=== PATIENT | female | born 1930 | race Caucasian/White ===

== ENCOUNTER 2016-11-01 05:32 | Inpatient (IN) | payer MEDICARE, MEDICAID ==
[~2016-11-01 05:32] MED LIST: BRIMONIDINE 0.15% LEFTEYE SCH
[2016-11-01] MEDS ORDERED: IPRATROPIUM/ALBUTEROL 0.5/3 MG 3 ML AMPUL.NEB INHALATION ONE ×2 (05:49→06:49)
[2016-11-01 06:21] LABS: BASOPHILS 0.2 % (0.0-2.0); HEMATOCRIT 42.1 % (36.0-48.0); HEMOGLOBIN 14.5 g/dL (12.0-16.0); LYMPHOCYTES 6.1 % (20.0-40.0); LYMPHOCYTES# 0.9 X 10^3uL (0.8-3.8); MEAN CELL VOLUME 93.4 fL (80.0-100.0); MEAN CORPUS. HGB CONCENTRATION 34.5 g/dL (32.0-36.0); MEAN CORPUSCULAR HEMOGLOBIN 32.2 pg (29.0-35.0); MEAN PLATELET VOLUME 8.1 fL (7.4-10.4); MONOCYTES# 0.6 X 10^3uL (0.2-1.0); PLATELET COUNT 259 X 10^3uL (130-440); RED BLOOD COUNT 4.51 X 10^6uL (4.20-6.10); RED CELL DISTRIBUTION WIDTH 12.5 % (11.5-14.5); WHITE BLOOD COUNT 15.5 X 10^3uL (3.9-10.7)
[2016-11-01 06:36] LABS: BLOOD UREA NITROGEN 19 mg/dL (7-17); CALCIUM 9.5 mg/dL (8.4-10.2); CHLORIDE 101 mmol/L (98-107); GLUCOSE 107 mg/dL (70-100); POTASSIUM 3.6 mmol/L (3.5-5.1); SODIUM 139 mmol/L (137-145)
[2016-11-01 06:42] LABS: NEUTROPHILS 89.7 % (54.0-75.0)
[2016-11-01 06:48] LABS: TROPONIN I < 0.012 ng/mL (0.00-0.034)
[2016-11-01] MEDS ORDERED: FUROSEMIDE 20 MG/2 ML VIAL ONE (06:49)
[2016-11-01] MEDS ORDERED: HOME MEDICATION LIST NEEDED 1 EA EACH MISC ONE (07:06)
[2016-11-01] MEDS ORDERED: cefTRIAXone SODIUM 1,000 MG/10 ML VIAL ONE (07:22)
[2016-11-01] MEDS ORDERED: AZITHROMYCIN 250 MG TABLET PO ONE (07:22)
[2016-11-01] MEDS ORDERED: NORMAL SALINE 250 ML IV ONE (07:23)
[2016-11-01] MEDS ORDERED: NORMAL SALINE 100 ML IV ONE (07:23)
--- NOTE | 2016-11-01 07:35 | ER PHYSICIAN DOCUMENTATION ---
Physician Documentation [facility] Name:Deborah Villegas Age:86 yrs Sex:Female :1930 Arrival Date:11/01/2016 Time:05:32 BedTrauma-B Private MD:Melina Junior ED, Chris Disposition: 11/01 06:51 Critical Care: not applicable. cd 07:35 Chart complete. cd Disposition: 11/01/16 06:52 Admit ordered for Melina Junior. Preliminary diagnosis are Pneumonia Bacterial, Hypoxia, Do Not Resuscitate Status. - Bed requested for Medical/Surgical. - Condition is Fair. - Problem is new. - Symptoms have improved. 23 HR OBS No HPI: 05:40 This 86 yrs old Female presents to ER via Private Vehicle with complaints of cd Shortness of breath and hypoxia. 05:40 The patient has shortness of breath at rest, that woke him/her from sleep, that cd occurred at a fpc or assisted living facility, and the patient has a history of lung disease, Hypoxia, Patient reports that she was recently exposed to a filter cleaner at the [facility] 2 and 3 days ago that had a cold and deep cough.. Onset: The symptom(s)/episode began/occurred acutely, just prior to arrival. Duration: The symptoms are continuous, and are unchanged since they started. The patient's shortness of breath is aggravated by nothing, is alleviated by nothing. Associated signs and symptoms: Pertinent negatives: chest pain, diaphoresis, dizziness, fever, hemoptysis, nausea, vomiting. Severity of symptoms: At their worst the symptoms were moderate in the emergency department the symptoms are unchanged. Risk Factors Risk factors for coronary artery disease include: This patient does not have any risk factors for coronary artery disease. The patient has not experienced similar symptoms in the past. Patient's daughter, the power of district attorney, relates that the patient's mother of sudden CHF.. Historical: - Allergies: Codeine; - Home Meds: 1. Aspirin Oral 2. brimonidine 3. dorzolammide 4. Lisinopril Oral 5. Verapamil Oral 6. Lyrica Oral - PMHx: back pain, awaiting spinal injection; - Ebola Screening: : Patient negative for fever greater than or equal to 101.5 degrees Fahrenheit, and additional compatible Ebola Virus Disease symptoms. Patient denies exposure to infectious person. Patient denies travel to an Ebola-affected area in the 21 days before illness onset. No symptoms or risks identified at this time. . - Immunization history: Pneumococcal vaccine is up to date, Flu Vaccine < 1 year. - Social history: Smoking status: Patient states former smoker of tobacco. Patient/guardian denies using alcohol, street drugs, IV drugs, marijuana. ROS: 06:29 ENT: Negative for injury, pain, epistaxis and discharge. cd Neck: Negative for injury, pain, stiffness and swelling. Cardiovascular: Negative for chest pain, palpitations, edema and pleuritic pain. Abdomen/GI: Negative for abdominal pain, nausea, vomiting, diarrhea, constipation, distension, melena, hematochezia and hematemesis. Back: Negative for injury, pain or muscle spasms. : Negative for injury, bleeding, discharge, dysuria, frequency, urgency and swelling. MS/Extremity: Negative for injury, deformity, edema, calf tenderness, pain or coldness. Skin: Negative for injury, rash, itching and discoloration. 06:29 Neuro: Negative for headache, weakness, numbness, tingling, and seizure. cd 06:29 Constitutional: Negative for chills, fever, poor PO intake. 06:29 Respiratory: Positive for orthopnea, shortness of breath, Negative for cough, hemoptysis, pleurisy, wheezing. 06:29 All other systems are negative. Exam: Head/Face: Normocephalic, atraumatic. ENT: Nares patent. No nasal discharge, no septal abnormalities noted. Tympanic membranes are normal and external auditory canals are clear. Oropharynx with no redness, swelling, or masses, exudates, or evidence of obstruction, uvula midline. Mucous membranes moist. Neck: Trachea midline, no thyromegaly or masses palpated, and no cervical lymphadenopathy. Supple, full range of motion without nuchal rigidity, or vertebral point tenderness. No Meningismus. Chest/axilla: Normal chest wall appearance and motion. Nontender with no deformity. No lesions are appreciated. Abdomen/GI: Soft, non-tender, with normal bowel sounds. No distension or tympany. No guarding or rebound. No evidence of tenderness throughout. Back: No spinal tenderness. No costovertebral tenderness. Full range of motion. Skin: Warm, dry with normal turgor. Normal color with no rashes, no lesions, and no evidence of cellulitis. MS/ Extremity: Pulses equal, no cyanosis. Neurovascular intact. Full, normal range of motion. 06:29 Neuro: Awake and alert, GCS 15, oriented to person, place, time, and situation. cd Cranial nerves II-XII grossly intact. Motor strength 5/5 in all extremities. Sensory grossly intact. Cerebellar exam normal. Normal gait. 06:29 Constitutional: The patient appears alert, awake, comfortable, non-diaphoretic, non-toxic, well developed, well nourished. 06:29 Cardiovascular: Rate: normal, Rhythm: regular, Pulses: no pulse deficits are appreciated, Heart sounds: normal, Edema: is not appreciated. 06:29 Respiratory: the patient does not display signs of respiratory distress, Respirations: normal, no acute changes, labored breathing, is not present, accessory muscle usage, is absent, prolonged exhalation, is not present, pursed lip breathing, is not present, Breath sounds: rales, that are moderate, are scattered, are located in both bases, rhonchi, are not appreciated, wheezing, is not appreciated, stridor, is not appreciated. Vital Signs: 05:39 BP 127 / 62 (auto/); st 05:43 Pulse 83; Pulse Ox 87% ; st 05:45 BP 117 / 58 (auto/); sc1 05:49 BP 117 / 58; Pulse 87; Resp 20; Temp 99.4(TE); Pulse Ox 87% on 8% Non-rebreather mask; sc1 06:03 Pulse Ox 90% ; sc1 06:03 Pulse 85; Resp 18; sc1 06:15 BP 108 / 50 (auto/); st 06:18 Pulse 87; Pulse Ox 87% ; st 06:30 BP 88 / 46 (auto/); st 06:33 Pulse 84; Pulse Ox 88% ; st 06:45 BP 89 / 43 (auto/); st 06:53 Resp 22; Pulse Ox 88% ; st 07:00 BP 88 / 42 (auto/); st 07:03 Pulse 94; Pulse Ox 88% ; st 07:17 BP 85 / 41 (auto/); st 07:18 Pulse 90; Pulse Ox 91% ; st 07:28 Pulse Ox 94% ; st 07:28 BP 88 / 40 (auto/); Pulse 90; st [place] Coma Score: 06:29 Eye Response: spontaneous(4). Verbal Response: oriented(5). Motor Response: obeys cd commands(6). Total: 15. MDM: 05:36 Patient medically screened. cd 05:40 Data interpreted: Pulse oximetry: on 3L(s) per nasal cannula, is 72 %. Interpretation: cd hypoxia. Plan: O2 by Mask applied. 05:45 Differential diagnosis: CHF exacerbation, Chronic Obstructive Pulmonary Disease cd Myocardial Infarction pneumonia, pulmonary edema, Pulmonary Embolism reactive airway disease, Sepsis Unstable Angina. 06:33 Antibiotic administration: Rocephin and Zithromax given. Data reviewed: vital signs, cd nurses notes, old medical records, EKG, radiologic studies, plain films, and as a result, I will admit patient, initiate a consult, from a Internal Medicine, Dr. Melina Junior. 06:45 ECG:. cd 06:50 Physician consultation: Melina Junior MD was called at 06:45, was contacted at cd 06:50, regarding admission, to the floor, consult, patient's condition, need to evaluate the patient as soon as possible, and will see patient in inpatient room, shortly, later today. Admission orders: after a detailed discussion of the patient's condition and case, the admit orders are written by me. 06:51 Counseling: I had a detailed discussion with the patient and/or guardian regarding: the cd historical points, exam findings, and any diagnostic results supporting the discharge/admit diagnosis, lab results, radiology results, the need for further work-up and treatment in the hospital. Response to treatment: the patient's symptoms have mildly improved after treatment, and as a result, I will admit patient. 11/01 06:33 Order name: LACTATE; Complete Time: 06:49 EDMS 06 06:49 Interpretation: Abnormal: LACTATE 2.6; Elevated. 11/01 06:41 Order name: BASIC METABOLIC PANEL; Complete Time: 06:49 EDMS 06 06:49 Interpretation: Normal. 11/01 06:42 Order name: CBC AUTO DIF, MDIF/RMOR IF IND; Complete Time: 06:49 EDMS 11/01 06:49 Interpretation: Normal Except: WHITE BLOOD COUNT 15.5; NEUTROPHILS 89.7; Elevated WBC cd with Left shift. 11/01 06:48 Order name: DDIMER; Complete Time: 06:50 EDMS 11/01 06:50 Interpretation: Abnormal: DDIMER 318; Mildly Elevated, but less than 10x the patient's cd age. 06 06:49 Order name: BNP,NT-PRO; Complete Time: 06:50 EDMS 11/01 06:50 Interpretation: Abnormal: BNP,NT-PRO 1290; elevated. 11/01 06:49 Order name: TROPONIN I; Complete Time: 06:50 EDMS 11/01 06:50 Interpretation: Normal. 11/01 09:14 Order name: RAPID STREP SCRN CUL IF NEG EDMS 11/01 14:18 Order name: SPUTUM CULTURE AND GRAM STAIN EDHI 11/02 06:16 Order name: BLOOD CULTURE EDMS 11/02 06:16 Order name: BLOOD CULTURE EDMS 11/02 06:27 Order name: BASIC METABOLIC PANEL EDHI 11/02 06:31 Order name: CBC AUTO DIF, MDIF/RMOR IF IND EDMS 11/02 09:28 Order name: THROAT FOR BETA STREP EDMS 11/02 09:59 Order name: LACTATE EDMS 11/03 07:24 Order name: BASIC METABOLIC PANEL EDMS 11/01 12:13 Order name: CHEST; SINGLE [place]IEW [address] EDHI 11/02 10:37 Order name: CXR 2V [id number] EDMS 11/01 05:38 Order name: I & O; Complete Time: 06:24 cd 11/01 05:38 Order name: Oxygen; Complete Time: 06:24 cd 11/01 05:38 Order name: Place Patient On Monitor; Complete Time: 06:24 cd 11/01 05:38 Order name: Pulse Ox Continuous; Complete Time: 06:24 cd 11/01 05:38 Order name: 12-lead EKG; Complete Time: 06:42 cd EC:20 Rate is 82 beats/min. Rhythm is regular. QRS [place] is Normal. [place] interval is normal. QRS cd interval is normal. QT interval is normal. No Q waves. T waves are Normal. No ST changes noted. Clinical impression: Normal ECG and No evidence of ischemia. Interpreted by me. Dispensed Medications: 05:40 Drug: DuoNeb (Albuterol 2.5 mg, Atrovent 0.5 mg); 3 ml; Route: Nebulizer; [facility] 06:41 Drug: Lasix 10 mg; Route: IVP; Site: left antecubital; mi1 06:41 Drug: DuoNeb (Albuterol 2.5 mg, Atrovent 0.5 mg); 3 ml; Route: Nebulizer; mi1 07:21 Drug: Rocephin 1 grams; Route: IVPB; Site: left antecubital; st 07:34 Follow up: IV Status: Infusion continued upon admission st 07:21 Drug: Zithromax 500 mg; Route: PO; 07:22 Drug: NS 0.9% 250 ml; Route: IV; Rate: bolus; Site: left antecubital; st 07:33 Follow up: IV Status: Infusion continued upon admission st Signatures: Samantha Barnard RN RN Huma Alexandra RN RN [facility] Jorge Jeffers MD MD cd
--- NOTE | 2016-11-01 07:35 | ER NURSING DOCUMENTATION ---
Nurse's Notes [facility] Name:Deborah Villegas Age:86 yrs Sex:Female :1930 Arrival Date:11/01/2016 Time:05:32 BedTrauma-B Private MD:Melina Junior Diagnosis:Pneumonia Bacterial;Hypoxia;Do Not Resuscitate Status Presentation: 11/01 05:45 Presenting complaint: PP staff state that pt. has had progressively worsening lung sc1 sounds and difficulty breathing tonight and also states she has been hypotensive. Transition of care: PP. Notified ED Physician of patient's arrival and CC Dr. Jeffers notified. 05:45 Acuity: CESAR 3 sc1 05:45 Method Of Arrival: Private Vehicle ok1 Triage Assessment: 05:49 General: Appears in no apparent distress, well developed, well nourished, well groomed, sc1 Behavior is cooperative, pleasant. Pain: Denies pain. Respiratory: Breath sounds with crackles bilaterally. Historical: - Allergies: Codeine; - Home Meds: 1. Aspirin Oral 2. brimonidine 3. dorzolammide 4. Lisinopril Oral 5. Verapamil Oral 6. Lyrica Oral - PMHx: back pain, awaiting spinal injection; - Ebola Screening: : Patient negative for fever greater than or equal to 101.5 degrees Fahrenheit, and additional compatible Ebola Virus Disease symptoms. Patient denies exposure to infectious person. Patient denies travel to an Ebola-affected area in the 21 days before illness onset. No symptoms or risks identified at this time. . - Immunization history: Pneumococcal vaccine is up to date, Flu Vaccine < 1 year. - Social history: Smoking status: Patient states former smoker of tobacco. Patient/guardian denies using alcohol, street drugs, IV drugs, marijuana. Screenin:53 Infectious Disease Risk None. Abuse screen: Denies threats or abuse. Nutritional sc1 screening: No deficits noted. Assessment: 07:22 General: pt states she is feeling better.. st Vital Signs: 05:39 BP 127 / 62 (auto/); st 05:43 Pulse 83; Pulse Ox 87% ; st 05:45 BP 117 / 58 (auto/); sc1 05:49 BP 117 / 58; Pulse 87; Resp 20; Temp 99.4(TE); Pulse Ox 87% on 8% Non-rebreather mask; sc1 06:03 Pulse Ox 90% ; sc1 06:03 Pulse 85; Resp 18; sc1 06:15 BP 108 / 50 (auto/); st 06:18 Pulse 87; Pulse Ox 87% ; st 06:30 BP 88 / 46 (auto/); st 06:33 Pulse 84; Pulse Ox 88% ; st 06:45 BP 89 / 43 (auto/); st 06:53 Resp 22; Pulse Ox 88% ; st 07:00 BP 88 / 42 (auto/); st 07:03 Pulse 94; Pulse Ox 88% ; st 07:17 BP 85 / 41 (auto/); st 07:18 Pulse 90; Pulse Ox 91% ; st 07:28 Pulse Ox 94% ; st 07:28 BP 88 / 40 (auto/); Pulse 90; st [place] Coma Score: 06:29 Eye Response: spontaneous(4). Verbal Response: oriented(5). Motor Response: obeys cd commands(6). Total: 15. ED Course: 05:34 Patient arrived in ED. em2 05:34 Melina Junior MD is Private Physician. em2 05:36 Jorge Jeffers MD is Attending Physician. cd 05:45 Huma Peacock RN is Primary Nurse. sc1 05:47 Triage completed. sc1 05:52 Port Xray Completed. dnn 05:53 Notified ED Physician of patient's arrival and chief complaint. Dr. Jeffers notified. sc1 Allergy Band Placed Arm band placed on Bed in low position Call Light in Reach Gowned HOB Elevated Side rails up x2. Labs ordered per protocol. Drawn by ED staff. 06:00 Inserted saline lock: 20 gauge in left antecubital area and blood collected. 1st set of em1 blood cultures and lactate. 06:07 Inserted RAC accessed with 22G butterfly for 2nd set of blood cultures. em1 06:19 EKG done. (by ED staff). em1 06:52 Melina Junior MD is Admitting Physician. cd Administered Medications: 05:40 Drug: DuoNeb (Albuterol 2.5 mg, Atrovent 0.5 mg); 3 ml; Route: Nebulizer; sc1 06:41 Drug: Lasix 10 mg; Route: IVP; Site: left antecubital; [facility] 06:41 Drug: DuoNeb (Albuterol 2.5 mg, Atrovent 0.5 mg); 3 ml; Route: Nebulizer; ok1 07:21 Drug: Rocephin 1 grams; Route: IVPB; Site: left antecubital; st 07:34 Follow up: IV Status: Infusion continued upon admission st 07:21 Drug: Zithromax 500 mg; Route: PO; st 07:22 Drug: NS 0.9% 250 ml; Route: IV; Rate: bolus; Site: left antecubital; st 07:33 Follow up: IV Status: Infusion continued upon admission st Outcome: 06:52 Decision to Admit by Provider. 07:33 Admitted to Med/surg accompanied by nurse, via wheelchair, with oxygen. st 07:33 Condition: stable 07:33 Report given to Sumi COWAN 07:33 Instructed on need to admit 07:34 Patient [address] the ED. st Signatures: Samantha Barnard RN RN st Campbell, Sandy, RN RN sc1 Jorge Jeffers MD MD cd [place], David dnn Meinking-tech, Katrina-tech em1 Meinking-reg, Katrina-reg em2
[2016-11-01] MEDS ORDERED: WATER IRRIG 1,000 ML BOTTLE ONE (08:06)
[2016-11-01] MEDS: IPRATROPIUM/ALBUTEROL 0.5/3 MG 3 ML AMPUL.NEB INHALATION SCH ×4 (08:38→19:56)
[2016-11-01] MEDS ORDERED: BENZOCAINE/MENTHOL 1 EACH LOZENGE PO ONE (08:54)
--- NOTE | 2016-11-01 08:59 | RADIOLOGY REPORT ---
A limited single portable view of the chest is compared with prior film dated . The heart and vessels are stable and unremarkable. There has been development of small patchy bibasilar infiltrates. The mid and upper lung haynes are clear. No fluid or pneumothorax is seen. IMPRESSION: Small patchy bibasilar infiltrates. MTDD
[2016-11-01] MEDS ORDERED: PIPERACILLIN /TAZO 2.25 GM/10 ML VIAL IV SCH (09:00)
[2016-11-01] MEDS ORDERED: NORMAL SALINE MINI-BAG+ 100 ML IV ONE (10:19)
[2016-11-01] MEDS: ENOXAPARIN SODIUM 30 MG/0.3 ML SYR SUBCUT SCH (10:20)
[2016-11-01] MEDS: NORMAL SALINE 1,000 ML IV SCH (10:20)
[2016-11-01] MEDS: BENZOCAINE/MENTHOL 1 EACH LOZENGE PO PRN ×2 (10:21→14:36)
[2016-11-01] MEDS: TAZO IV SCH ×3 (11:33→22:22)
[2016-11-01] MEDS: PIPERACILLIN IV SCH ×3 (11:33→22:22)
[2016-11-01] MEDS: NORMAL SALINE MINI IV SCH ×3 (11:33→22:22)
--- NOTE | 2016-11-01 14:10 | HISTORY & PHYSICAL ---
DATE OF ADMISSION: 11/01/16 ADMITTING DIAGNOSIS: Bilateral lower lobe pneumonia, unknown organism. HISTORY OF PRESENT ILLNESS: The patient is an 86-year-old female, resident of the [facility], who was in her usual state of health until last evening. She apparently developed a cough which was nonproductive, and some malaise and during the night her oxygen steadily decreased so that she had oxygen placed. Towards the morning she was requiring multiple liters of oxygen to maintain a saturation even of 84%, and she was noted to be hypotensive with a blood pressure systolic of 99. At this point I was paged, and the patient was transferred to the emergency room. The patient was assessed in the emergency room. She was complaining of a sore throat, cough, weakness and malaise and lack of appetite. She has no chest pain or palpitations. Emergency room assessment found her to have bilateral small lower lobe infiltrates and marked hypoxemia on arrival which was corrected with a nonrebreather mask, and then improved with DuoNebs. The patient is being admitted for facility acquired pneumonia. ALLERGIES: To clarithromycin and codeine. PAST MEDICAL HISTORY 1. Mild cognitive impairment. 2. Hyponatremia. 3. 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 4. Hypertension. 5. History of paroxysmal supraventricular tachycardia with ablation in 1998. 6. History of pelvic fracture on the right side. 7. Nocturnal hypoxia. 8. Monoclonal gammopathy of unknown significance. 9. Anxiety. 10. Anemia of chronic disease which has been mild. 11. History of partial small bowel obstruction in 2012 resolved without surgery. 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 13. 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 PAST SURGICAL HISTORY 1. Remote ankle surgery. 2. Appendectomy 1979. 3. Abdominal hysterectomy with unilateral oophorectomy for benign reasons in 1973. 4. Left inguinal hernia repair in 2011. 5. Tonsillectomy. 6. Lumbar spinal decompression with diskectomy. MEDICATIONS IN THE FACILITY Acetaminophen 325 mg 2 every 4 hours as needed. Artificial Tears at bedtime as needed for dry eyes. Lorazepam 0.5 mg twice daily as needed for anxiety. Brimonidine drops 0.15% 2 drops to the left eye daily. Calcium 600 mg with vitamin D 200 units twice daily. Multivitamin 1 daily. Dorzolamide drops 2% 1 drop to the left eye twice daily. Dulcolax suppository 1 per rectum daily p.r.n., 10 mg constipation. Furosemide 20 mg half a tablet q.a.m. Simethicone chewable 80 mg 1 every 8 hours as needed. Ibuprofen 200 mg 2 every 6 hours as needed for pain. Losartan 100 mg daily. Lyrica 75 mg twice daily. Maalox 30 mL every 2 hours as needed. Metamucil 1 teaspoon twice daily. Potassium chloride 8 mEq 1 daily. Promethazine 25 mg 1 every 8 hours as needed for nausea. Salt tablets 3 g 1 daily. Sertraline 25 mg daily. Tramadol 50 mg every 6 hours as needed. Ventolin HFA 1 or 2 puffs up to 4 times daily as needed for wheezing with spacer. Vitamin D 400 IU daily. SOCIAL HISTORY: She has a history of heavy alcohol abuse but has not been drinking for several years now. She is . She has 3 daughters one of whom is local. She is a former smoker who quit 20-30 years ago but had a history of heavy use. FAMILY HISTORY: Father drown at unknown age. Mother at 86 with heart failure and had macular degeneration. A brother from a fall. REVIEW OF SYSTEMS: Denies headache. She has general malaise, however, and lightheadedness. Complains of a sore throat. She complains of cough and some shortness of breath and wheezing. She has no chest pain. She has some chest tightness. She has had no diarrhea or constipation or abdominal pain. No melena or hematochezia. She has had no dysuria or hematuria. She has some chronic right leg pain from sciatica and ongoing lumbar spine issues. PHYSICAL EXAMINATION VITAL SIGNS: Last blood pressure from the emergency room 88/40, pulse is recorded at 90, oxygen saturation at 91% on nonrebreather. GENERAL: The patient is alert and answers appropriately. She is very thin but this is not new. HEENT: Extraocular movements are intact but she has had chronic difficulty with upward gaze. Pupils are equal, round and reactive. Oropharynx is moist, however , there is marked erythema of the posterior soft palate with a patch of white exudate adjacent to the uvula and some edema. NECK: No jugular venous distention. No bruits. No adenopathy. No thyromegaly. LUNGS: Diffuse rhonchi anteriorly and posteriorly with some dullness to percussion at the bases posteriorly. No tachypnea is noted. ABDOMEN: Soft, flat, nontender. No organomegaly, no masses noted. Surgical incision scars that are well healed are noted. NEUROLOGIC: She is well oriented but has no short term memory deficits at times. Cranial nerves are grossly intact except for her upward gaze palsy. Motor strength is 5/5. Deep tendon reflexes are markedly brisk throughout. Toes are downgoing bilaterally. Gait was not tested. DATA: Chemistry is notable for a mildly elevated BUN at 19. Sodium is normal at 139. Glucose is 107 nonfasting. Lactic acid was high at 2.6. BNP is 1290. CBC: White count is 15,500, hemoglobin 14.5, hematocrit 42.1, platelet count 259,000. There is a left shift of 90% neutrophils. Lymphocytes are mildly decreased at 6%. D-dimer was mildly elevated at 318 but this is most likely consistent with pneumonia. ASSESSMENT AND PLAN 1. Bilateral lower lobe pneumonia. The patient does not have a tendency to aspirate nor history of aspiration. The pneumonia is facility acquired and we have had 2 other patients in the facility with pneumonia recently one of which has staph in the sputum culture along with E coli. The staph was not methicillin resistant. I elected therefore to cover the patient with Zosyn. Hopefully we can induce a sputum with respiratory treatment as the patient is not bringing up sputum at this time. She is requiring a lot of oxygen use and has an underlying history of some COPD per previous x-rays. Will continue out efforts with nebulizers and with respiratory therapy. Blood cultures have been obtained. The patient is current with her pneumococcal vaccination with Pneumovax in 2012 and Prevnar having been given in the retirement in 2016. She also had her flu shot in February of 2016. 2. Hypertension. The patient has been hypotensive and medications are being held at this time and we will monitor until we feel that she can take them safely. She is being monitored on telemetry with a history of paroxysmal supraventricular tachycardia. 3. Hyponatremia. The patient has done very well with 3 g of sodium replacement daily and has had a complete workup for the problem. 4. Mild cognitive impairment. The patient is actually reasonably oriented at this time but does have a history of developing delirium when hospitalized and will need to be monitored closely for that. 5. Chronic sciatica and spinal pain in the lumbar region. Continue tramadol as needed but be cautious because of her history of delirium in the hospital setting. 6. The patient has do not resuscitate status and this will be honored as it is longstanding. 7. DVT prophylaxis. Will be started with Lovenox as she is high risk given her pneumonia. MTDD
[2016-11-01] MEDS ORDERED: MAG-AL PLUS XS SUSP 30 ML UDC PO PRN (14:42)
[2016-11-01] MEDS ORDERED: BISACODYL 10 MG SUPP.RECT RECTAL PRN (14:42)
[2016-11-01] MEDS ORDERED: LOPERAMIDE HCL 2 MG CAPSULE PO PRN (14:42)
[2016-11-01] MEDS ORDERED: SENNOSIDES 8.6 MG TABLET PO PRN (14:42)
[2016-11-01] MEDS ORDERED: traMADol HCL 50 MG TABLET PO PRN (14:42)
[2016-11-01] MEDS ORDERED: POLYVINYL ALCOHOL 1.4% OPHTH 75 DROP/15 ML BTL EACHEYE PRN (14:42)
[2016-11-01] MEDS ORDERED: IBUPROFEN 200 MG TABLET PO PRN (14:42)
[2016-11-01] MEDS ORDERED: SIMETHICONE CHEW 80 MG TABLET PO PRN (14:42)
[2016-11-01] MEDS ORDERED: MAGNESIUM HYDROXIDE 30 ML UDC PO PRN (14:42)
[2016-11-01] MEDS ORDERED: BRIMONIDINE TARTRATE LEFTEYE SCH (14:45)
[2016-11-01] MEDS: ACETAMINOPHEN 325 MG TABLET PO SCH ×3 (15:39→22:21)
[2016-11-01] MEDS: LORazepam 1 MG TABLET PO SCH (20:16)
[2016-11-01] MEDS: PSYLLIUM SEED 1 PKT PACKET PO SCH (20:16)
[2016-11-01] MEDS: PREGABALIN 75 MG CAPSULE PO SCH (20:18)
[2016-11-01] MEDS: SERTRALINE HCL 50 MG TABLET PO SCH (20:18)
[2016-11-01] MEDS: DORZOLAMIDE 2% LEFTEYE SCH (20:18)
[2016-11-02] MEDS: IPRATROPIUM/ALBUTEROL 0.5/3 MG 3 ML AMPUL.NEB INHALATION SCH ×6 (02:47→20:58)
[2016-11-02] MEDS: ACETAMINOPHEN 325 MG TABLET PO SCH ×6 (02:48→23:25)
[2016-11-02] MEDS: PIPERACILLIN IV SCH ×4 (03:17→21:30)
[2016-11-02] MEDS: TAZO IV SCH ×4 (03:17→21:30)
[2016-11-02] MEDS: NORMAL SALINE MINI IV SCH ×4 (03:17→21:30)
[2016-11-02] MEDS: BENZOCAINE/MENTHOL 1 EACH LOZENGE PO PRN (03:55)
[2016-11-02 06:19] LABS: BLOOD UREA NITROGEN 28 mg/dL (7-17); CALCIUM 7.9 mg/dL (8.4-10.2); CHLORIDE 105 mmol/L (98-107); GLUCOSE 86 mg/dL (70-100); POTASSIUM 3.7 mmol/L (3.5-5.1); SODIUM 137 mmol/L (137-145)
[2016-11-02 06:27] LABS: BASOPHILS 0.1 % (0.0-2.0); EOSINOPHILS 0.2 % (0.0-6.0); HEMOGLOBIN 11.1 g/dL (12.0-16.0); LYMPHOCYTES 7.4 % (20.0-40.0); LYMPHOCYTES# 1.1 X 10^3uL (0.8-3.8); MEAN CELL VOLUME 94.3 fL (80.0-100.0); MEAN CORPUS. HGB CONCENTRATION 33.5 g/dL (32.0-36.0); MEAN CORPUSCULAR HEMOGLOBIN 31.6 pg (29.0-35.0); MONOCYTES 3.8 % (2.0-10.0); MONOCYTES# 0.6 X 10^3uL (0.2-1.0); NEUTROPHILS# 12.8 X 10^3uL (2.6-6.7); PLATELET COUNT 209 X 10^3uL (130-440); WHITE BLOOD COUNT 14.5 X 10^3uL (3.9-10.7)
[2016-11-02 06:30] LABS: NEUTROPHILS 88.5 % (54.0-75.0)
[2016-11-02] MEDS ORDERED: VANCOMYCIN HCL 1,000 MG in NORMAL SALINE ADDVANTAGE 250 ML IV ONE (07:43)
[2016-11-02] MEDS ORDERED: cefTRIAXone SODIUM 1,000 MG in NORMAL SALINE MINI-BAG+ 100 ML IV SCH (08:00)
--- NOTE | 2016-11-02 08:03 | PROGRESS NOTE: IM APSO ---
Assessment and Plan - Date of Encounter Date of Encounter: 11/02/16 (1) Pneumonia Status: Acute Assessment and plan: I am concerned about the ongoing elevation in WBC. Patient has gram positive cocci in the sputum. I have ordered a gram of Vancomycin, and will await the sputum culture results before changing anything else. I am also concerned that she has bilateral pleural effusions. Chest xray is ordered to follow up. Overall, patient's clinical status is not much improved. Current Visit: Yes (2) Hypotension Status: Acute Assessment and plan: Presumptively associated with pneumonia and infection. She does not appear septic, but will repeat lactate to better assess. Still receiving IVF. Current Visit: No - Time Spent With Patient Total time spent with greater than 50% in coordination of care (as documented) at patient's floor/unit and/or counseling patient: 16-24 minutes IM: PN Subjective Interval history: Some improvement in strength and oxygenation this morning, but has hypotension. She still has a sore throat, and still has elevation in WBC. She is using 8L oxygen with oxymizer. Sitting up in chair and fully alert now. Sputum with gram positive cocci. General: fatigue, malaise, chills, no fever HEENT: sore throat, no visual changes, no headache Cardiovascular: no chest pain, no chest pressure, no palpitations, no dizziness Respiratory: cough, SOB, no sputum, no wheeze Gastrointestinal: constipation, no abdominal pain Genitourinary: no dysuria Musculoskeletal: no pain Integumentary: no rashes IM: PN Objective Exam - I&O/Vital Signs I&O: Intake & Output 11/01/16 11/02/16 11/02/16 21:59 05:59 13:59 Intake Total 718 1050 Output Total 250 Balance 718 800 Intake: IV 800 Left Antecubital 800 Oral 718 250 Output: Urine 250 Other: Urine Appearance Clear Urine Color Yellow Stool Size Small Stool Characteristics Hard Brown Voiding Method Toilet Bedside Commode # Voids 2 Vital Signs: Last Vital Signs Temp 36.7 C 11/02/16 06:41 Pulse 76 11/02/16 06:41 Resp 17 11/02/16 06:41 BP 88/42 11/02/16 06:41 Pulse Ox 98 11/02/16 03:00 Oxygen Flow Rate 8 Oxygen Delivery Method oximizer - Constitutional General appearance: Present: thin - Head Head exam: Present: normal inspection - Eye Eye exam: Present: EOMI. Absent: conjunctival injection Pupils: Present: PERRL - ENT ENT exam: Present: mucous membranes moist - Neck Neck exam: Present: full ROM. Absent: lymphadenopathy - Respiratory Respiratory exam: Present: decreased breath sounds (bilateral bases) - Cardiovascular Cardiovascular exam: Present: RRR. Absent: bradycardia - Extremities Exam Extremities exam: Absent: calf tenderness, edema, tenderness - Neurological Exam Neurological exam: Present: alert, CN II-XII intact - Allied Health Notes Allied health notes reviewed: nursing - Lab Labs: Laboratory Last Values WBC 14.5 X 10^3uL (3.9-10.7) H 11/02/16 05:25 RBC 3.50 X 10^6uL (4.20-6.10) L 11/02/16 05:25 Hgb 11.1 g/dL (12.0-16.0) L 11/02/16 05:25 Hct 33.0 % (36.0-48.0) L 11/02/16 05:25 MCV 94.3 fL (80.0-100.0) 11/02/16 05:25 MCH 31.6 pg (29.0-35.0) 11/02/16 05:25 MCHC 33.5 g/dL (32.0-36.0) 11/02/16 05:25 RDW 13.0 % (11.5-14.5) 11/02/16 05:25 Plt Count 209 X 10^3uL (130-440) 11/02/16 05:25 MPV 8.0 fL (7.4-10.4) 11/02/16 05:25 Neutrophils % 88.5 % (54.0-75.0) H 11/02/16 05:25 Lymphocytes % 7.4 % (20.0-40.0) L 11/02/16 05:25 Eosinophils % 0.2 % (0.0-6.0) 11/02/16 05:25 Basophils % 0.1 % (0.0-2.0) 11/02/16 05:25 Neutrophils # 12.8 X 10^3uL (2.6-6.7) H 11/02/16 05:25 Lymphocytes # 1.1 X 10^3uL (0.8-3.8) 11/02/16 05:25 Monocytes 3.8 % (2.0-10.0) 11/02/16 05:25 Monocytes # 0.6 X 10^3uL (0.2-1.0) 11/02/16 05:25 Eosinophils # 0.0 X 10^3uL (0.0-0.4) 11/02/16 05:25 Basophils # 0.0 X 10^3uL (0.0-0.1) 11/02/16 05:25 D-Dimer 318 ng/mL H* 11/01/16 06:00 Sodium 137 mmol/L (137-145) 11/02/16 05:25 Potassium 3.7 mmol/L (3.5-5.1) 11/02/16 05:25 Chloride 105 mmol/L (98-107) 11/02/16 05:25 Carbon Dioxide 25 mmol/L (22-30) 11/02/16 05:25 BUN 28 mg/dL (7-17) H 11/02/16 05:25 Creatinine 1.2 mg/dL (0.5-1.0) H 11/02/16 05:25 GFR Calculation Not Reportable 11/02/16 05:25 Glucose 86 mg/dL (70-100) 11/02/16 05:25 Lactic Acid 2.6 mmol/L (0.7-2.1) H 11/01/16 06:00 Calcium 7.9 mg/dL (8.4-10.2) L 11/02/16 05:25 Troponin I < 0.012 ng/mL (0.00-0.034) 11/01/16 06:00 NT-Pro-B Natriuret Pep 1290 pg/mL (<450) H 11/01/16 06:00 Group A Strep Rapid Negative 11/01/16 08:13 Quality Questions - VTE Prophylaxis Assessment VTE Present on Admission?: No Patient at risk for venous thromboembolism?: Yes VTE Risk Level: Moderate Risk Pharmaceutical VTE prophylaxis contraindication reason: N/A- VTE prophylaxsis ordered Mechanical VTE prophylaxis contraindication reason: N/A- VTE prophylaxsis ordered (1) Pneumonia Qualifiers: Pneumonia type: due to unspecified organism Laterality: bilateral (2) Hypotension Qualifiers: Hypotension type: idiopathic hypotension Qualified Code(s): I95.0 - Idiopathic hypotension
[2016-11-02] MEDS ORDERED: AZITHROMYCIN 250 MG TABLET PO SCH (09:00)
[2016-11-02] MEDS ORDERED: POTASSIUM CHLORIDE 8 MEQ PO SCH (09:00)
[2016-11-02] MEDS: FERROUS SULFATE 325 MG TABLET PO SCH (09:39)
[2016-11-02] MEDS: CHOLECALCIFEROL 400 UNIT TABLET PO SCH (09:40)
[2016-11-02] MEDS: LORazepam 1 MG TABLET PO SCH ×2 (09:40→21:30)
[2016-11-02] MEDS: FUROSEMIDE 20 MG TABLET PO SCH (09:40)
[2016-11-02] MEDS: MULTIVITAMINS THERAPEUTIC 1 TABLET PO SCH (09:40)
[2016-11-02] MEDS: POTASSIUM CHLORIDE ER 10 MEQ TABLET PO SCH (09:40)
[2016-11-02] MEDS: PREGABALIN 75 MG CAPSULE PO SCH ×2 (09:40→21:25)
[2016-11-02] MEDS: SODIUM CHLORIDE 1 GM TABLET PO SCH (09:40)
[2016-11-02] MEDS: PSYLLIUM SEED 1 PKT PACKET PO SCH ×2 (09:50→21:30)
[2016-11-02] MEDS: LIDOCAINE 5% 1 PATCH PATCH TOPICAL SCH (09:50)
[2016-11-02] MEDS: BRIMONIDINE LEFTEYE SCH (09:50)
[2016-11-02] MEDS: ENOXAPARIN SODIUM 30 MG/0.3 ML SYR SUBCUT SCH (09:50)
[2016-11-02] MEDS: DORZOLAMIDE 2% LEFTEYE SCH ×2 (09:51→21:30)
--- NOTE | 2016-11-02 10:36 | RADIOLOGY REPORT ---
HISTORY: Pneumonia, pleural effusion. COMPARISON: None. FINDINGS: 2 views of the chest are obtained. The heart size is within normal limits. Calcific atherosclerosis o f the aortic arch. Right lower lobe airspace opacity most likely pneumonia. Small right pleural effus ion. Suspected small left pleural effusion. No aggressive bone lesion. IMPRESSION: 1. Right lower lobe pneumonia. 2. Small right pleural effusion. 3. Likely small left pleural effusion. Final Electronic Signature: This report was electronically signed by Kiel Lombardi MD on 11/02/2016 10:34 AM. natasha /
[2016-11-02] MEDS: VERAPAMIL HCL ER 120 MG TABLET PO SCH (11:41)
[2016-11-02] MEDS: LOSARTAN POTASSIUM 50 MG TABLET PO SCH (11:41)
[2016-11-02] MEDS: NORMAL SALINE 1,000 ML IV SCH (15:51)
[2016-11-02] MEDS: METHYLPREDNISOLONE SOD 125 MG/2 ML VIAL IV SCH (17:02)
[2016-11-02] MEDS: SERTRALINE HCL 50 MG TABLET PO SCH (21:25)
[2016-11-02] MEDS: GUAIFENESIN ER 600 MG TABLET PO SCH (21:28)
[2016-11-03] MEDS: IPRATROPIUM/ALBUTEROL 0.5/3 MG 3 ML AMPUL.NEB INHALATION SCH ×6 (00:24→20:54)
[2016-11-03] MEDS: METHYLPREDNISOLONE SOD 125 MG/2 ML VIAL IV SCH ×3 (00:50→18:26)
[2016-11-03] MEDS: ACETAMINOPHEN 325 MG TABLET PO SCH ×6 (03:03→20:05)
[2016-11-03] MEDS: PIPERACILLIN IV SCH ×2 (03:30→09:52)
[2016-11-03] MEDS: NORMAL SALINE MINI IV SCH ×2 (03:30→09:52)
[2016-11-03] MEDS: TAZO IV SCH ×2 (03:30→09:52)
[2016-11-03 07:03] LABS: BLOOD UREA NITROGEN 25 mg/dL (7-17); CHLORIDE 110 mmol/L (98-107); GLUCOSE 136 mg/dL (70-100); POTASSIUM 3.6 mmol/L (3.5-5.1); SODIUM 141 mmol/L (137-145)
[2016-11-03 07:19] LABS: CALCIUM 8.4 mg/dL (8.4-10.2)
[2016-11-03 07:52] LABS: HEMATOCRIT 36.9 % (36.0-48.0); HEMOGLOBIN 12.1 g/dL (12.0-16.0); MEAN CELL VOLUME 94.4 fL (80.0-100.0); MEAN CORPUS. HGB CONCENTRATION 32.6 g/dL (32.0-36.0); MEAN CORPUSCULAR HEMOGLOBIN 30.8 pg (29.0-35.0); MEAN PLATELET VOLUME 8.1 fL (7.4-10.4); PLATELET COUNT 258 X 10^3uL (130-440); RED BLOOD COUNT 3.91 X 10^6uL (4.20-6.10); RED CELL DISTRIBUTION WIDTH 13.1 % (11.5-14.5); WHITE BLOOD COUNT 12.2 X 10^3uL (3.9-10.7)
[2016-11-03 07:53] LABS: LYMPHOCYTE % (Manual) 5 % (20.0-40.0); METAMYELOCYTE % (Manual) 1 % (0); MONOCYTE % (Manual) 2 % (2.0-10.0)
[2016-11-03 07:54] LABS: NEUTROPHIL % (Manual) 20 % (54.0-75.0); PLATELET ESTIMATE ADEQUATE
[2016-11-03] MEDS: ENOXAPARIN SODIUM 30 MG/0.3 ML SYR SUBCUT SCH (09:50)
[2016-11-03] MEDS: CHOLECALCIFEROL 400 UNIT TABLET PO SCH (09:50)
[2016-11-03] MEDS: GUAIFENESIN ER 600 MG TABLET PO SCH ×2 (09:51→21:00)
[2016-11-03] MEDS: LORazepam 1 MG TABLET PO SCH ×2 (09:51→20:59)
[2016-11-03] MEDS: MULTIVITAMINS THERAPEUTIC 1 TABLET PO SCH (09:51)
[2016-11-03] MEDS: FERROUS SULFATE 325 MG TABLET PO SCH (09:51)
[2016-11-03] MEDS: LOSARTAN POTASSIUM 50 MG TABLET PO SCH (09:51)
[2016-11-03] MEDS: FUROSEMIDE 20 MG TABLET PO SCH (09:51)
[2016-11-03] MEDS: LIDOCAINE 5% 1 PATCH PATCH TOPICAL SCH (09:53)
[2016-11-03] MEDS: SODIUM CHLORIDE 1 GM TABLET PO SCH (09:56)
[2016-11-03] MEDS: PREGABALIN 75 MG CAPSULE PO SCH ×2 (09:56→21:00)
[2016-11-03] MEDS: PSYLLIUM SEED 1 PKT PACKET PO SCH ×3 (09:56→20:58)
[2016-11-03] MEDS: BRIMONIDINE LEFTEYE SCH (09:57)
[2016-11-03] MEDS: DORZOLAMIDE 2% LEFTEYE SCH ×2 (09:57→21:01)
[2016-11-03] MEDS: POTASSIUM CHLORIDE ER 10 MEQ TABLET PO SCH (09:57)
[2016-11-03] MEDS: VERAPAMIL HCL ER 120 MG TABLET PO SCH (11:03)
[2016-11-03] MEDS: NORMAL SALINE 1,000 ML IV SCH (11:20)
--- NOTE | 2016-11-03 13:16 | PROGRESS NOTE: IM APSO ---
Assessment and Plan - Date of Encounter Date of Encounter: 11/03/16 (1) Pneumonia Status: Acute Assessment and plan: Serious pneumonia, BCx are neg but sputum with S Pneumo; will continue Rocephin and monitor. Clinically significantly improved today, O2 down to 3L Current Visit: Yes (2) Hypotension Status: Resolved Assessment and plan: Improved with degree of illness. Current Visit: No (3) Hypoxia Status: Acute Assessment and plan: O2 req has come down some, will follow. Current Visit: No - Time Spent With Patient Total time spent with greater than 50% in coordination of care (as documented) at patient's floor/unit and/or counseling patient: IM: PN Subjective General: fatigue, malaise, no fever, no chills HEENT: sore throat, no visual changes, no headache Cardiovascular: no chest pain, no chest pressure, no palpitations, no dizziness Respiratory: SOB (improved), no cough, no sputum, no wheeze Gastrointestinal: no abdominal pain Genitourinary: no dysuria Musculoskeletal: no pain Integumentary: no rashes IM: PN Objective Exam - I&O/Vital Signs I&O: Intake & Output 11/02/16 11/03/16 11/03/16 21:59 05:59 13:59 Intake Total 450 1160 Output Total 375 650 Balance 75 510 Weight 52 kg Intake: IV 860 Right Wrist 860 Oral 450 300 Output: Urine 375 650 Other: Urine Appearance Clear Clear Urine Color Yellow Yellow Yellow Stool Size Moderate Moderate Stool Characteristics Soft Soft Formed Formed Brown Brown Voiding Method Bedside Commode Toilet Toilet # Bowel Movements 2 Vital Signs: Last Vital Signs Temp 36.9 C 11/03/16 11:00 Pulse 79 11/03/16 11:00 Resp 20 11/03/16 11:00 BP 119/86 11/03/16 11:00 Pulse Ox 91 11/03/16 11:00 Oxygen Flow Rate 3 Oxygen Delivery Method Nasal Cannula - Constitutional General appearance: Present: thin - Head Head exam: Present: normal inspection - Eye Eye exam: Present: EOMI. Absent: conjunctival injection Pupils: Present: PERRL - ENT ENT exam: Present: mucous membranes moist - Neck Neck exam: Present: full ROM. Absent: lymphadenopathy - Respiratory Respiratory exam: Present: decreased breath sounds (R base quite densely without breath sounds) - Cardiovascular Cardiovascular exam: Present: RRR. Absent: bradycardia - Extremities Exam Extremities exam: Absent: calf tenderness, edema, tenderness - Neurological Exam Neurological exam: Present: alert, CN II-XII intact - Allied Health Notes Allied health notes reviewed: nursing - Lab Labs: Laboratory Last Values WBC 12.2 X 10^3uL (3.9-10.7) H 11/03/16 06:20 RBC 3.91 X 10^6uL (4.20-6.10) L 11/03/16 06:20 Hgb 12.1 g/dL (12.0-16.0) 11/03/16 06:20 Hct 36.9 % (36.0-48.0) 11/03/16 06:20 MCV 94.4 fL (80.0-100.0) 11/03/16 06:20 MCH 30.8 pg (29.0-35.0) 11/03/16 06:20 MCHC 32.6 g/dL (32.0-36.0) 11/03/16 06:20 RDW 13.1 % (11.5-14.5) 11/03/16 06:20 Plt Count 258 X 10^3uL (130-440) 11/03/16 06:20 MPV 8.1 fL (7.4-10.4) 11/03/16 06:20 Total Counted 100 11/03/16 06:20 Neutrophils % 88.5 % (54.0-75.0) H 11/02/16 05:25 Neutrophils % (Manual) 20 % (54.0-75.0) L 11/03/16 06:20 Band Neuts % (Manual) 72 % (0.0-1.0) H 11/03/16 06:20 Lymphocytes % 7.4 % (20.0-40.0) L 11/02/16 05:25 Lymphocytes % (Manual) 5 % (20.0-40.0) L 11/03/16 06:20 Monocytes % (Manual) 2 % (2.0-10.0) 11/03/16 06:20 Eosinophils % 0.2 % (0.0-6.0) 11/02/16 05:25 Basophils % 0.1 % (0.0-2.0) 11/02/16 05:25 Metamyelocytes % (Man) 1 % (0) H 11/03/16 06:20 Neutrophils # 12.8 X 10^3uL (2.6-6.7) H 11/02/16 05:25 Lymphocytes # 1.1 X 10^3uL (0.8-3.8) 11/02/16 05:25 Monocytes 3.8 % (2.0-10.0) 11/02/16 05:25 Monocytes # 0.6 X 10^3uL (0.2-1.0) 11/02/16 05:25 Eosinophils # 0.0 X 10^3uL (0.0-0.4) 11/02/16 05:25 Basophils # 0.0 X 10^3uL (0.0-0.1) 11/02/16 05:25 Platelet Estimate Adequate 11/03/16 06:20 D-Dimer 318 ng/mL H* 11/01/16 06:00 Sodium 141 mmol/L (137-145) 11/03/16 06:20 Potassium 3.6 mmol/L (3.5-5.1) 11/03/16 06:20 Chloride 110 mmol/L (98-107) H 11/03/16 06:20 Carbon Dioxide 22 mmol/L (22-30) 11/03/16 06:20 BUN 25 mg/dL (7-17) H 11/03/16 06:20 Creatinine 1.0 mg/dL (0.5-1.0) 11/03/16 06:20 GFR Calculation Not Reportable 11/03/16 06:20 Glucose 136 mg/dL (70-100) H 11/03/16 06:20 Lactic Acid 2.6 mmol/L (0.7-2.1) H 11/02/16 09:12 Calcium 8.4 mg/dL (8.4-10.2) 11/03/16 06:20 Troponin I < 0.012 ng/mL (0.00-0.034) 11/01/16 06:00 NT-Pro-B Natriuret Pep 1290 pg/mL (<450) H 11/01/16 06:00 Group A Strep Rapid Negative 11/01/16 08:13 (1) Pneumonia Qualifiers: Pneumonia type: due to Pneumococcus Laterality: right (2) Hypotension Qualifiers: Hypotension type: idiopathic hypotension Qualified Code(s): I95.0 - Idiopathic hypotension
[2016-11-03] MEDS ORDERED: cefTRIAXone SODIUM 1,000 MG in NORMAL SALINE MINI-BAG+ 100 ML IV SCH (14:00)
[2016-11-03] MEDS ORDERED: METHYLPREDNISOLONE SOD ONE (18:32)
[2016-11-03] MEDS: SERTRALINE HCL 50 MG TABLET PO SCH (20:59)
[2016-11-04] MEDS: ACETAMINOPHEN 325 MG TABLET PO SCH ×6 (01:43→18:12)
[2016-11-04] MEDS: IPRATROPIUM/ALBUTEROL 0.5/3 MG 3 ML AMPUL.NEB INHALATION SCH ×6 (01:47→21:08)
[2016-11-04] MEDS: NORMAL SALINE 1,000 ML IV SCH (05:03)
[2016-11-04 07:19] LABS: BLOOD UREA NITROGEN 27 mg/dL (7-17); CALCIUM 8.8 mg/dL (8.4-10.2); CHLORIDE 112 mmol/L (98-107); GLUCOSE 148 mg/dL (70-100); POTASSIUM 3.1 mmol/L (3.5-5.1); SODIUM 143 mmol/L (137-145)
[2016-11-04 07:42] LABS: HEMATOCRIT 34.6 % (36.0-48.0); HEMOGLOBIN 11.6 g/dL (12.0-16.0); MEAN CELL VOLUME 92.9 fL (80.0-100.0); MEAN CORPUS. HGB CONCENTRATION 33.5 g/dL (32.0-36.0); MEAN CORPUSCULAR HEMOGLOBIN 31.1 pg (29.0-35.0); MEAN PLATELET VOLUME 8.1 fL (7.4-10.4); PLATELET COUNT 252 X 10^3uL (130-440); RED BLOOD COUNT 3.73 X 10^6uL (4.20-6.10); RED CELL DISTRIBUTION WIDTH 13.2 % (11.5-14.5); WHITE BLOOD COUNT 8.1 X 10^3uL (3.9-10.7)
[2016-11-04 07:53] LABS: BAND% (Manual) 57 % (0.0-1.0); LYMPHOCYTE % (Manual) 8 % (20.0-40.0); MONOCYTE % (Manual) 5 % (2.0-10.0); NEUTROPHIL % (Manual) 30 % (54.0-75.0)
[2016-11-04 07:54] LABS: BASOPHIL % (Manual) 0 % (0.0-2.0); EOSINOPHIL % (Manual) 0 % (0.0-6.0); PLATELET ESTIMATE ADEQUATE
--- NOTE | 2016-11-04 08:19 | PROGRESS NOTE: IM APSO ---
Assessment and Plan - Date of Encounter Date of Encounter: 11/04/16 (1) Pneumonia Status: Acute Assessment and plan: Doing well with cephalosporin, will convert to oral meds and monitor, anticipate d/c to PPLC in AM. Current Visit: Yes (2) Hypoxia Status: Acute Assessment and plan: Improved significantly. Current Visit: No (3) Loose stools Status: Acute Assessment and plan: Probably d/t antibiotics, oral meds may sit better, and will start probiotic. Current Visit: Yes (4) Hypotension Status: Resolved Assessment and plan: With fluids and improvement from critical illness, her BPs are better. For her age, still low. Steroids may have helped but will not continue. Will cut back on routine meds and follow. Current Visit: Yes - Time Spent With Patient Total time spent with greater than 50% in coordination of care (as documented) at patient's floor/unit and/or counseling patient: IM: PN Subjective General: fatigue, malaise, no fever, no chills HEENT: sore throat, no visual changes, no headache Cardiovascular: no chest pain, no chest pressure, no palpitations, no dizziness Respiratory: SOB (improved), no cough, no sputum, no wheeze Gastrointestinal: no abdominal pain Genitourinary: no dysuria Musculoskeletal: no pain Integumentary: no rashes IM: PN Objective Exam - I&O/Vital Signs I&O: Intake & Output 11/03/16 11/04/16 11/04/16 21:59 05:59 13:59 Intake Total 1690 980 Output Total 250 Balance 1690 730 Weight 51.5 kg Intake: IV 720 680 Right Wrist 720 680 Oral 970 300 Output: Urine 250 Other: Urine Appearance Clear Clear Urine Color Yellow Yellow Stool Size Small Smear Stool Characteristics Soft Formed Formed Brown Voiding Method Toilet Toilet # Voids 3 # Bowel Movements 4 1 Vital Signs: Last Vital Signs Temp 36.8 C 11/04/16 05:06 Pulse 73 11/04/16 05:06 Resp 26 H 11/04/16 05:06 BP 104/54 11/04/16 05:06 Pulse Ox 3 L 11/04/16 05:06 Oxygen Flow Rate 3 Oxygen Delivery Method Nasal Cannula - Constitutional General appearance: Present: thin - Head Head exam: Present: normal inspection - Eye Eye exam: Present: EOMI. Absent: conjunctival injection Pupils: Present: PERRL - ENT ENT exam: Present: mucous membranes moist - Neck Neck exam: Present: full ROM. Absent: lymphadenopathy - Respiratory Respiratory exam: Present: decreased breath sounds (R base quite densely without breath sounds) - Cardiovascular Cardiovascular exam: Present: RRR. Absent: bradycardia - Extremities Exam Extremities exam: Absent: calf tenderness, edema, tenderness - Neurological Exam Neurological exam: Present: alert, CN II-XII intact - Allied Health Notes Allied health notes reviewed: nursing - Lab Labs: Laboratory Last Values WBC 8.1 X 10^3uL (3.9-10.7) 11/04/16 06:45 RBC 3.73 X 10^6uL (4.20-6.10) L 11/04/16 06:45 Hgb 11.6 g/dL (12.0-16.0) L 11/04/16 06:45 Hct 34.6 % (36.0-48.0) L 11/04/16 06:45 MCV 92.9 fL (80.0-100.0) 11/04/16 06:45 MCH 31.1 pg (29.0-35.0) 11/04/16 06:45 MCHC 33.5 g/dL (32.0-36.0) 11/04/16 06:45 RDW 13.2 % (11.5-14.5) 11/04/16 06:45 Plt Count 252 X 10^3uL (130-440) 11/04/16 06:45 MPV 8.1 fL (7.4-10.4) 11/04/16 06:45 Total Counted 100 11/04/16 06:45 Neutrophils % 88.5 % (54.0-75.0) H 11/02/16 05:25 Neutrophils % (Manual) 30 % (54.0-75.0) L 11/04/16 06:45 Band Neuts % (Manual) 57 % (0.0-1.0) H 11/04/16 06:45 Lymphocytes % 7.4 % (20.0-40.0) L 11/02/16 05:25 Lymphocytes % (Manual) 8 % (20.0-40.0) L 11/04/16 06:45 Atypical Lymphs % (Man) 0 % 11/04/16 06:45 Monocytes % (Manual) 5 % (2.0-10.0) 11/04/16 06:45 Eosinophils % 0.2 % (0.0-6.0) 11/02/16 05:25 Eosinophils % (Manual) 0 % (0.0-6.0) 11/04/16 06:45 Basophils % 0.1 % (0.0-2.0) 11/02/16 05:25 Basophils % (Manual) 0 % (0.0-2.0) 11/04/16 06:45 Metamyelocytes % (Man) 1 % (0) H 11/03/16 06:20 Neutrophils # 12.8 X 10^3uL (2.6-6.7) H 11/02/16 05:25 Lymphocytes # 1.1 X 10^3uL (0.8-3.8) 11/02/16 05:25 Monocytes 3.8 % (2.0-10.0) 11/02/16 05:25 Monocytes # 0.6 X 10^3uL (0.2-1.0) 11/02/16 05:25 Eosinophils # 0.0 X 10^3uL (0.0-0.4) 11/02/16 05:25 Basophils # 0.0 X 10^3uL (0.0-0.1) 11/02/16 05:25 Platelet Estimate Adequate 11/04/16 06:45 D-Dimer 318 ng/mL H* 11/01/16 06:00 Sodium 143 mmol/L (137-145) 11/04/16 06:45 Potassium 3.1 mmol/L (3.5-5.1) L 11/04/16 06:45 Chloride 112 mmol/L (98-107) H 11/04/16 06:45 Carbon Dioxide 21 mmol/L (22-30) L 11/04/16 06:45 BUN 27 mg/dL (7-17) H 11/04/16 06:45 Creatinine 1.0 mg/dL (0.5-1.0) 11/04/16 06:45 GFR Calculation Not Reportable 11/04/16 06:45 Glucose 148 mg/dL (70-100) H 11/04/16 06:45 Lactic Acid 2.6 mmol/L (0.7-2.1) H 11/02/16 09:12 Calcium 8.8 mg/dL (8.4-10.2) 11/04/16 06:45 Troponin I < 0.012 ng/mL (0.00-0.034) 11/01/16 06:00 NT-Pro-B Natriuret Pep 1290 pg/mL (<450) H 11/01/16 06:00 Group A Strep Rapid Negative 11/01/16 08:13 (1) Pneumonia Qualifiers: Pneumonia type: due to Pneumococcus Laterality: right Lung location: lower lobe of lung Qualified Code(s): J13 - Pneumonia due to Streptococcus pneumoniae
[2016-11-04] MEDS: PROBIOTIC 1 CAP CAPSULE PO SCH (09:14)
[2016-11-04] MEDS: LIDOCAINE 5% 1 PATCH PATCH TOPICAL SCH (09:14)
[2016-11-04] MEDS: CHOLECALCIFEROL 400 UNIT TABLET PO SCH (09:14)
[2016-11-04] MEDS: SODIUM CHLORIDE 1 GM TABLET PO SCH (09:14)
[2016-11-04] MEDS: POTASSIUM CHLORIDE ER 10 MEQ TABLET PO SCH (09:14)
[2016-11-04] MEDS: PREGABALIN 75 MG CAPSULE PO SCH ×2 (09:14→21:08)
[2016-11-04] MEDS: FERROUS SULFATE 325 MG TABLET PO SCH (09:15)
[2016-11-04] MEDS: GUAIFENESIN ER 600 MG TABLET PO SCH ×2 (09:15→21:08)
[2016-11-04] MEDS: MULTIVITAMINS THERAPEUTIC 1 TABLET PO SCH (09:15)
[2016-11-04] MEDS: LORazepam 1 MG TABLET PO SCH ×2 (09:15→21:11)
[2016-11-04] MEDS: FUROSEMIDE 20 MG TABLET PO SCH (09:15)
[2016-11-04] MEDS: PSYLLIUM SEED 1 PKT PACKET PO SCH ×2 (09:15→21:08)
[2016-11-04] MEDS ORDERED: POTASSIUM CHLORIDE ER 20 MEQ TABLET PO ONE (09:30)
[2016-11-04] MEDS: DORZOLAMIDE 2% LEFTEYE SCH ×2 (09:41→21:08)
[2016-11-04] MEDS: BRIMONIDINE LEFTEYE SCH (09:41)
[2016-11-04] MEDS: LOSARTAN POTASSIUM 50 MG TABLET PO SCH (10:13)
[2016-11-04] MEDS: VERAPAMIL HCL ER 120 MG TABLET PO SCH (10:14)
[2016-11-04] MEDS: SERTRALINE HCL 50 MG TABLET PO SCH (21:10)
[2016-11-05] MEDS: ACETAMINOPHEN 325 MG TABLET PO SCH ×3 (01:28→06:31)
[2016-11-05] MEDS: IPRATROPIUM/ALBUTEROL 0.5/3 MG 3 ML AMPUL.NEB INHALATION SCH ×3 (01:29→08:06)
[2016-11-05 06:46] VITALS: BP 121/65; PULSE 65; RESP 22; TEMP 98.2
[2016-11-05] MEDS: PSYLLIUM SEED 1 PKT PACKET PO SCH (08:04)
[2016-11-05] MEDS: CHOLECALCIFEROL 400 UNIT TABLET PO SCH (08:04)
[2016-11-05] MEDS: PROBIOTIC 1 CAP CAPSULE PO SCH (08:05)
[2016-11-05] MEDS: SODIUM CHLORIDE 1 GM TABLET PO SCH (08:05)
[2016-11-05] MEDS: GUAIFENESIN ER 600 MG TABLET PO SCH (08:05)
[2016-11-05] MEDS: FUROSEMIDE 20 MG TABLET PO SCH (08:05)
[2016-11-05] MEDS: POTASSIUM CHLORIDE ER 10 MEQ TABLET PO SCH (08:05)
[2016-11-05] MEDS: MULTIVITAMINS THERAPEUTIC 1 TABLET PO SCH (08:05)
[2016-11-05] MEDS: FERROUS SULFATE 325 MG TABLET PO SCH (08:05)
[2016-11-05] MEDS: LORazepam 1 MG TABLET PO SCH (08:05)
[2016-11-05] MEDS: PREGABALIN 75 MG CAPSULE PO SCH (08:05)
[2016-11-05] MEDS: LOSARTAN POTASSIUM 50 MG TABLET PO SCH (08:13)
[2016-11-05] MEDS: LIDOCAINE 5% 1 PATCH PATCH TOPICAL SCH (08:13)
[2016-11-05] MEDS: VERAPAMIL HCL ER 120 MG TABLET PO SCH (08:13)
[2016-11-05] MEDS: BRIMONIDINE LEFTEYE SCH (08:13)
[2016-11-05] MEDS: DORZOLAMIDE 2% LEFTEYE SCH (08:13)
[2016-11-05 08:20] VITALS: O2SAT 91
[2016-11-05 08:40] LABS: BASOPHILS 0.1 % (0.0-2.0); EOSINOPHILS 0.1 % (0.0-6.0); HEMATOCRIT 32.9 % (36.0-48.0); HEMOGLOBIN 11.2 g/dL (12.0-16.0); LYMPHOCYTES 10.9 % (20.0-40.0); LYMPHOCYTES# 1.1 X 10^3uL (0.8-3.8); MEAN CELL VOLUME 93.2 fL (80.0-100.0); MEAN CORPUS. HGB CONCENTRATION 33.9 g/dL (32.0-36.0); MEAN CORPUSCULAR HEMOGLOBIN 31.6 pg (29.0-35.0); MONOCYTES 6.9 % (2.0-10.0); MONOCYTES# 0.7 X 10^3uL (0.2-1.0); NEUTROPHILS# 8.1 X 10^3uL (2.6-6.7); PLATELET COUNT 247 X 10^3uL (130-440); RED BLOOD COUNT 3.53 X 10^6uL (4.20-6.10); RED CELL DISTRIBUTION WIDTH 13.5 % (11.5-14.5); WHITE BLOOD COUNT 9.9 X 10^3uL (3.9-10.7)
--- NOTE | 2016-11-05 08:40 | DC SUMMARY: IM Note ---
Discharge Summary: IM/Peds Provider: Date of Admission: 11/01/16 Admitting Provider: JORDAN GARBER MD Attending Provider: JORDAN GARBER MD Discharging Provider: SHANTHI GARCIA MD Primary Care Provider: Discharge Date: 11/05/16 - Diagnosis (1) Pneumonia Status: Acute Qualifiers: Pneumonia type: due to Pneumococcus Laterality: right Lung location: lower lobe of lung Qualified Code(s): J13 - Pneumonia due to Streptococcus pneumoniae (2) Hypoxia Status: Chronic (3) Dehydration Status: Acute (4) Hypotension Status: Resolved (5) HTN (hypertension) Status: Chronic Qualifiers: Hypertension type: essential hypertension Qualified Code(s): I10 - Essential (primary) hypertension (6) Hypokalemia Status: Acute (7) Leukocytosis Status: Acute Qualifiers: Leukocytosis type: bandemia Qualified Code(s): D72.825 - Bandemia - Time Spent with Patient Total time spent providing and/or coordinating discharge services: Time with patient DS: Greater than 30 minutes Discharge - Patient/Caregiver Discharge Instructions Activity Level: As tolerated. Diet: Regular Overall discharge status: patient is progressing back to baseline Print Language: EMIRATI Home Medications: cefUROXime AXETIL [Cefuroxime*] 500 mg PO BID #20 Probiotic [Brittany-Q Capsule*] 1 cap PO DAILY #20 Disposition: [facility] Discharge Summary Data - Medication History Medication History: Home Medications Acetaminophen [Tylenol*] 650 mg PO Q4H 11/01/16 Albuterol Hfa [Proventil Inhaler*] 1 - 2 puff INHALATION Q4H 11/01/16 Bisacodyl [Dulcolax*] 1 supp RECTAL DAILY PRN 11/01/16 Brimonidine Tartrate [Alphagan P] 2 drop LEFTEYE DAILY 11/01/16 Calcium Carbonate/Vitamin D3 [Calcium 600-Vit D3 200 Tablet] 1 each PO BID 11/01 Cholecalciferol [Vitamin D3] 400 unit PO DAILY 11/01/16 Dorzolamide 2% Ophth [Trusopt 2% Ophth Soln*] 1 drop LEFTEYE BID 11/01/16 Ferrous Sulfate [Ferrous Sulfate*] 1 tab PO DAILY 11/01/16 Furosemide [Lasix*] 10 mg PO DAILY 11/01/16 Ibuprofen [Ibuprofen*] 400 mg PO Q6H PRN 11/01/16 LORazepam [Ativan*] 0.5 mg PO BID 11/01/16 Lidocaine 5% [Lidoderm 5%*] 1 patch TOPICAL DAILY 11/01/16 Loperamide HCl [Imodium Ad*] 2 mg PO TID PRN 11/01/16 Losartan Potassium [Cozaar*] 100 mg PO DAILY 11/01/16 Mag-Al Plus Xs Susp [Maalox Liquid] 30 ml PO Q2H PRN 11/01/16 Magnesium Hydroxide [Milk of Magnesia*] 30 ml PO DAILY PRN 11/01/16 Multivitamins,Therapeutic [Thera Multivitamin*] 1 tab PO DAILY 11/01/16 Polyvinyl Alcohol 1.4% Ophth [Teargen*] 1 drop EACHEYE TID PRN 11/01/16 Potassium Chloride [Klor-Con 8] 8 meq PO DAILY 11/01/16 Pregabalin [Lyrica*] 75 mg PO BID 11/01/16 Psyllium Husk (with Sugar) [Metamucil Packet] 5 ml PO BID 11/01/16 Sennosides [Sennagen*] 8.6 mg PO BID PRN 11/01/16 Sertraline HCl [Zoloft*] 25 mg PO BEDTIME (DAILY) 11/01/16 Simethicone [Gas Relief] 80 mg PO Q8H PRN 11/01/16 Sodium Chloride [Salt Tablet] 3 gm PO DAILY 11/01/16 Verapamil HCl ER [Verapamil ER*] 240 mg PO DAILY 11/01/16 aspirin CHEW [Aspirin Chew*] 81 mg PO DAILY 11/01/16 proMETHazine HCL [Phenergan*] 25 mg PO Q8H PRN 11/01/16 traMADol HCL [Ultram*] 50 mg PO DAILY 11/01/16 Inpatient Medications 11/01/16 08:41 Benzocaine/Menthol [Cepacol Sorethroat Lozenges] 1 each PO PRN PRN 11/01/16 14:42 Bisacodyl [Dulcolax] 10 mg RECTAL DAILY PRN Ibuprofen [Motrin] 400 mg PO Q6H PRN Loperamide HCl [Imodium Ad] 2 mg PO TID PRN Mag-Al Plus Xs Susp [Maalox Liquid] 30 ml PO Q2H PRN Magnesium Hydroxide [Milk of Magnesia] 30 ml PO DAILY PRN Polyvinyl Alcohol 1.4% Ophth [Teargen] 1 drop EACHEYE Q2H PRN Sennosides [Senna-Lax] 8.6 mg PO BID PRN Simethicone Chew [Mylicon] 80 mg PO Q8H PRN proMETHazine HCL [Phenergan] 25 mg PO Q8H PRN traMADol HCL [Ultram] 50 mg PO Q6H PRN 11/01/16 15:00 Acetaminophen [Tylenol] 650 mg PO Q4H 11/01/16 21:00 Dorzolamide 2% Ophth [Trusopt 2% Ophth Soln] 1 drop LEFTEYE BID LORazepam [Ativan] 0.5 mg PO BID Pregabalin [Lyrica] 75 mg PO BID Psyllium Seed [Konsyl Beltrami Sf] 1 pkt PO BID Sertraline HCl [Zoloft] 25 mg PO BEDTIME (DAILY) 11/02/16 09:00 Cholecalciferol [Vitamin D3] 400 unit PO DAILY Ferrous Sulfate 325 mg PO DAILY Furosemide [Lasix] 10 mg PO DAILY Lidocaine 5% [Lidoderm 5%] 1 patch TOPICAL DAILY Losartan Potassium [Cozaar] 100 mg PO DAILY Multivitamins,Therapeutic [Thera] 1 tab PO DAILY Non-Formulary Medication 2 LEFTEYE DAILY Potassium Chloride ER [Micro-K] 10 meq PO DAILY Sodium Chloride [Salt Tablet] 3 gm PO DAILY aspirin CHEW [Baby Aspirin Chewable] 81 mg PO DAILY 11/02/16 21:00 Guaifenesin ER [Mucinex] 600 mg PO BID 11/04/16 08:21 Verapamil HCl ER [Isoptin-Sr] 120 mg PO DAILY 11/04/16 09:00 Probiotic [Brittany-Q Capsule] 1 cap PO DAILY cefUROXime AXETIL [cefTIN] 500 mg PO BID Procedures and tests throughout hospitalization: Completed Lab Orders 11/01/16 08:13 RAPID STREP SCRN CUL IF NEG [SER] Urgent 11/02/16 09:12 LACTATE [CHEM] Stat 11/03/16 06:20 BMP [BASIC METABOLIC PANEL] [CHEM] AMDRAW CBC W/ MANUAL DIFFERENTIAL [HEM] Routine 11/04/16 06:45 BMP [BASIC METABOLIC PANEL] [CHEM] AMDRAW CBC W/ MANUAL DIFFERENTIAL [HEM] AMDRAW Completed Imaging Orders 11/02/16 07:55 [id number] [CXR 2V 13095] [RAD] Stat Completed Microbiology Orders 11/01/16 09:13 THROAT FOR BETA STREP [RM] Urgent 11/01/16 11:32 SPUTUM CULTURE AND GRAM STAIN [RM] Routine Pending Orders 11/01/16 08:15 Sputum Specimen Collection by RT [RT] . 11/01/16 08:41 Benzocaine/Menthol [Cepacol Sorethroat Lozenges] 1 each PO PRN PRN 11/01/16 14:42 Bisacodyl [Dulcolax] 10 mg RECTAL DAILY PRN Ibuprofen [Motrin] 400 mg PO Q6H PRN Loperamide HCl [Imodium Ad] 2 mg PO TID PRN Mag-Al Plus Xs Susp [Maalox Liquid] 30 ml PO Q2H PRN Magnesium Hydroxide [Milk of Magnesia] 30 ml PO DAILY PRN Polyvinyl Alcohol 1.4% Ophth [Teargen] 1 drop EACHEYE Q2H PRN Sennosides [Senna-Lax] 8.6 mg PO BID PRN Simethicone Chew [Mylicon] 80 mg PO Q8H PRN proMETHazine HCL [Phenergan] 25 mg PO Q8H PRN traMADol HCL [Ultram] 50 mg PO Q6H PRN 11/01/16 15:00 Acetaminophen [Tylenol] 650 mg PO Q4H 11/01/16 21:00 Dorzolamide 2% Ophth [Trusopt 2% Ophth Soln] 1 drop LEFTEYE BID LORazepam [Ativan] 0.5 mg PO BID Pregabalin [Lyrica] 75 mg PO BID Psyllium Seed [Konsyl Beltrami Sf] 1 pkt PO BID Sertraline HCl [Zoloft] 25 mg PO BEDTIME (DAILY) 11/02/16 09:00 Cholecalciferol [Vitamin D3] 400 unit PO DAILY Ferrous Sulfate 325 mg PO DAILY Furosemide [Lasix] 10 mg PO DAILY Lidocaine 5% [Lidoderm 5%] 1 patch TOPICAL DAILY Losartan Potassium [Cozaar] 100 mg PO DAILY Multivitamins,Therapeutic [Thera] 1 tab PO DAILY Non-Formulary Medication 2 LEFTEYE DAILY Potassium Chloride ER [Micro-K] 10 meq PO DAILY Sodium Chloride [Salt Tablet] 3 gm PO DAILY aspirin CHEW [Baby Aspirin Chewable] 81 mg PO DAILY 11/02/16 11:22 Ensure Enlive (Clear) Suppl TID 11/02/16 21:00 Guaifenesin ER [Mucinex] 600 mg PO BID 11/04/16 08:21 Verapamil HCl ER [Isoptin-Sr] 120 mg PO DAILY 11/04/16 09:00 Probiotic [Brittany-Q Capsule] 1 cap PO DAILY cefUROXime AXETIL [cefTIN] 500 mg PO BID 11/05/16 08:15 BMP [BASIC METABOLIC PANEL] [CHEM] Stat CBC AUTO DIF, MDIF/RMOR IF IND [HEM] Stat Labs on day of discharge: Labs from last 24 hours 11/05/16 08:15 WBC Pending RBC Pending Hgb Pending Hct Pending MCV Pending MCH Pending MCHC Pending RDW Pending Plt Count Pending MPV Pending Neutrophils % Pending Lymphocytes % Pending Eosinophils % Pending Basophils % Pending Neutrophils # Pending Lymphocytes # Pending Monocytes Pending Monocytes # Pending Eosinophils # Pending Basophils # Pending Sodium Pending Potassium Pending Chloride Pending Carbon Dioxide Pending BUN Pending Creatinine Pending GFR Calculation Pending Glucose Pending Calcium Pending - Impressions Deborah was admitted with right lower lobe pneumonia with associated profound hypoxemia and hypotension. She was treated with Zosyn, Rocephin, Azithromycin, Vancomycin, oxygen, IV fluid resuscitation, duo nebulizers, and Solu-Medrol. She gradually improved with aggressive pulmonary resuscitation. She was able to be weaned from a nonrebreather mask to 2 L of oxygen per nasal cannula currently.. Her productive cough has gradually improved. Her energy level is also improving. She has always had a poor appetite. Initially with low blood pressures, her blood pressure medications were held. Her blood pressures are now overall stable and we will resume her home medication regimen. She has been transitioned to oral antibiotics and we will complete a full 14 day course. IM: Discharge Physical Exam - I&O/Vital Signs I&O: Intake & Output 11/04/16 11/05/16 11/05/16 21:59 05:59 13:59 Intake Total 430 535 Output Total 825 350 Balance -395 185 Intake: IV 240 Right Wrist 240 Oral 430 295 Output: Urine 825 350 Other: Urine Appearance Clear Clear Urine Color Yellow Straw Stool Size Small Stool Characteristics Soft Brown Voiding Method Toilet Toilet # Voids 3 # Bowel Movements 3 Vital Signs: Last Vital Signs Temp 36.8 C 11/05/16 06:44 Pulse 65 11/05/16 06:44 Resp 22 11/05/16 06:44 BP 121/65 11/05/16 06:44 Pulse Ox 91 11/05/16 08:19 Oxygen Flow Rate 2 Oxygen Delivery Method Nasal Cannula - Constitutional General appearance: Present: cooperative, thin. Absent: acute distress - Head Head exam: Present: normal inspection - Eye Eye exam: Present: EOMI. Absent: conjunctival injection Pupils: Present: PERRL - ENT ENT exam: Present: mucous membranes moist - Neck Neck exam: Present: full ROM. Absent: lymphadenopathy - Respiratory Respiratory exam: Present: decreased breath sounds (R.l bases. ), rales (R>L bases.). Absent: respiratory distress - Cardiovascular Cardiovascular exam: Present: RRR - GI/Abdominal GI/Abdominal exam: Present: normal bowel sounds, soft. Absent: tenderness - Extremities Exam Extremities exam: Present: edema (Trace pretibial and pedal edema.). Absent: calf tenderness, tenderness - Back Exam Back exam: Absent: CVA tenderness (L), CVA tenderness (R) - Neurological Exam Neurological exam: Present: alert, CN II-XII intact - Psychiatric Psychiatric exam: Present: normal affect, normal mood - Allied Health Notes Allied health notes reviewed: case management, nursing, RT
[2016-11-05 08:41] LABS: BLOOD UREA NITROGEN 26 mg/dL (7-17); CHLORIDE 117 mmol/L (98-107); GLUCOSE 99 mg/dL (70-100); POTASSIUM 3.5 mmol/L (3.5-5.1); SODIUM 147 mmol/L (137-145)
[2016-11-06 15:43] LABS: BAND% (Manual) 72 % (0.0-1.0)
== END 2016-11-05 08:56 | DRG 194 ==
LOC: ER 05:32 → IN 07:28
PROVIDERS: ADMIT Internal Medicine; ATTEND Internal Medicine
DX: J15.9 Unspecified bacterial pneumonia (principal); E86.0 Dehydration; E87.1 Hypo-osmolality and hyponatremia; I95.9 Hypotension, unspecified; I10 Essential (primary) hypertension; E87.6 Hypokalemia; D72.825 Bandemia; G31.84 Mild cognitive impairment of uncertain or unknown etiology; F41.8 Other specified anxiety disorders; M51.36 Other intervertebral disc degeneration, lumbar region; D64.9 Anemia, unspecified; E51.2 Wernicke's encephalopathy; D47.2 Monoclonal gammopathy; Z79.899 Other long term (current) drug therapy
CPT/HCPCS: 36415; 71010; 71020; 80048; 83605; 83880; 84484; 85007; 85025; 85027; 85379; 86403; 87040; 87070; 87077; 87081; 87205; 93005; 94640; 94667; 94668; 96374; 96375; 99285; A4217; J0696; J1650; J1940; J2543; J2930; J3370; J7030; J7050; J7620; Q0144